=== PATIENT | male | born 1960 | race Caucasian/White ===

== ENCOUNTER 2017-02-09 16:30 | Emergency (ER) | payer SELFPAY ==
[~2017-02-09] VITALS: Ht 185.4 cm; Wt 78.8 kg
[2017-02-09] MEDS ORDERED: SODIUM CHLORIDE 0.9% 1,000ML IVBOLUS ONE (17:00)
[2017-02-09 17:20] LABS: HEMATOCRIT 51.6 % (39.2-51.8); HEMOGLOBIN 17.5 g/dL (13.7-18.0); WHITE BLOOD COUNT 6.9 x10^3/uL (3.4-10)
[2017-02-09 17:32] LABS: ASPARTATE AMINO TRANSFERASE 11 U/L (15-37); BLOOD UREA NITROGEN 19 mg/dL (7-18)
[2017-02-09 17:56] VITALS: BP 109/75
[2017-02-09] MEDS ORDERED: SODIUM CHLORIDE FLUSH 10ML SYR IVF ONE (18:00)
== END 2017-02-09 18:30 | disposition home or self-care (01) ==
LOC: ED 18:17
DX: R10.84 Generalized abdominal pain (principal); K59.00 Constipation, unspecified; E11.65 Type 2 diabetes mellitus with hyperglycemia; Z79.4 Long term (current) use of insulin
CPT/HCPCS: 36415; 74000; 80053; 84443; 85025; 96360; 99285; J7030

== ENCOUNTER 2017-10-04 05:51 | Day surgery (SDC) | payer MEDICAID ==
[2017-10-03 10:56] LABS: ALANINE AMINOTRANSFERASE 20 U/L (12-78); ALBUMIN 3.8 g/dL (3.4-5.0); ANION GAP 7 mmol/L (5-15); CHLORIDE 103 mmol/L (98-107); CREATININE 0.67 mg/dL (0.7-1.3)
[2017-10-03 10:59] LABS: ALKALINE PHOSPHATASE 59 U/L (45-117); BILIRUBIN,TOTAL 0.6 mg/dL (0.2-1.0); TOTAL PROTEIN 7.1 g/dL (6.4-8.2)
[~2017-10-04] VITALS: Ht 182.9 cm; Wt 70.1 kg
[~2017-10-04 05:51] MED LIST: ATOR20TA9 PO; INSU100C SQ-INSULIN; METF850T2 PO; MIDO2.5T PO
[2017-10-04] MEDS ORDERED: LACTATED RINGERS 1,000 ML IV SCH (06:46)
[2017-10-04 06:47] VITALS: BP 94/64
[2017-10-04] MEDS ORDERED: LIDOCAINE-MPF 1%, 2ML INFIL ONE (07:00)
== END 2017-10-04 10:48 ==
LOC: OUT 05:51
PROVIDERS: ATTEND Internal Medicine Gastroenterology
DX: K59.00 Constipation, unspecified (principal); D12.5 Benign neoplasm of sigmoid colon; E78.00 Pure hypercholesterolemia, unspecified; E11.9 Type 2 diabetes mellitus without complications
CPT/HCPCS: 36415; 80053; 82962; 88305; 93005